=== PATIENT | male | born 1940 | race Caucasian/White ===

== ENCOUNTER 2017-08-21 11:17 | Day surgery (SDC) | payer MEDICARE, OTHER ==
[2017-08-21] MEDS: NS 1,000 ML IV (11:40)
[2017-08-21] MEDS ORDERED: PROPOFOL 200 MG/20 ML VIAL As Ordered ×3 (12:01→12:25)
== END 2017-08-21 13:13 | disposition home or self-care (01) ==
LOC: M OPP 11:17
DX: Z12.11 Encounter for screening for malignant neoplasm of colon (principal); K64.0 First degree hemorrhoids; D12.6 Benign neoplasm of colon, unspecified; D12.0 Benign neoplasm of cecum; Z86.010 Personal history of colon polyps; K57.30 Diverticulosis of large intestine without perforation or abscess without bleeding; K22.8 Other specified diseases of esophagus; K44.9 Diaphragmatic hernia without obstruction or gangrene; R12 Heartburn; I10 Essential (primary) hypertension; E11.9 Type 2 diabetes mellitus without complications; E07.9 Disorder of thyroid, unspecified; E78.5 Hyperlipidemia, unspecified; K21.9 Gastro-esophageal reflux disease without esophagitis; G45.3 Amaurosis fugax; Z79.82 Long term (current) use of aspirin; Z79.01 Long term (current) use of anticoagulants; Z79.899 Other long term (current) drug therapy; Z88.8 Allergy status to other drugs, medicaments and biological substances; Z91.041 Radiographic dye allergy status; J30.2 Other seasonal allergic rhinitis; Z95.2 Presence of prosthetic heart valve
CPT/HCPCS: 45380

== ENCOUNTER → 2019-08-23 | Outpatient (REF) | payer MEDICARE, OTHER ==
[~2019-08-23] MED LIST: AMLO10TA5 PO; ASPI81TA85 PO; ESOM1CAP5 PO; GEMF600T5 PO; IPRA6SP; METO50TA7 PO; SYNT25TA PO; WARF-58 PO
== END ==
LOC: M LAB REF 09:25
PROVIDERS: ATTEND Orthopaedic Surgery
DX: C44.319 Basal cell carcinoma of skin of other parts of face (principal)

== ENCOUNTER → 2020-11-28 | Outpatient (CLI) | payer MEDICARE, OTHER ==
[~2020-11-28] MED LIST changes: -AMLO10TA5 PO; +AMLO1TAB25 PO; -ASPI81TA85 PO; +ASPI81TA86 PO
== END ==
LOC: M LABSMTC 10:16
PROVIDERS: ATTEND Anesthesiology
DX: Z01.812 Encounter for preprocedural laboratory examination (principal); Z20.822 Contact with and (suspected) exposure to COVID-19

== ENCOUNTER 2020-12-03 09:16 | Day surgery (SDC) | payer MEDICARE, OTHER ==
[~2020-12-03] VITALS: Ht 160 cm; Wt 88.9 kg
[~2020-12-03 09:16] MED LIST changes: +NS 1,000 ML IV ONE
[2020-12-03] MEDS ORDERED: MONT10TA97 PO (09:42)
[2020-12-03] MEDS ORDERED: FLUT15.820 NARES (09:42)
[2020-12-03] MEDS ORDERED: RANO500T7 PO (09:42)
[2020-12-03] MEDS ORDERED: propofoL 500 MG/50 ML VIAL As Ordered ONE (10:42)
[2020-12-03] MEDS ORDERED: fentaNYL 100 MCG/2 ML INJECTION As Ordered ONE (10:42)
[2020-12-03] MEDS ORDERED: LIDOCAINE 2% 100MG/5ML SDV (FOR ANES.) As Ordered ONE (10:42)
[2020-12-03 12:00] VITALS: BP 156/80
== END 2020-12-03 11:55 | disposition home or self-care (01) ==
LOC: M OPP 09:16
PROVIDERS: ATTEND Internal Medicine Gastroenterology
DX: Z12.11 Encounter for screening for malignant neoplasm of colon (principal); Z86.010 Personal history of colon polyps; D12.6 Benign neoplasm of colon, unspecified; K57.30 Diverticulosis of large intestine without perforation or abscess without bleeding; K22.8 Other specified diseases of esophagus; K44.9 Diaphragmatic hernia without obstruction or gangrene; K31.7 Polyp of stomach and duodenum; K22.70 Barrett's esophagus without dysplasia; K64.0 First degree hemorrhoids; R12 Heartburn; Z79.82 Long term (current) use of aspirin; Z79.01 Long term (current) use of anticoagulants; Z79.899 Other long term (current) drug therapy; Z87.891 Personal history of nicotine dependence; Z85.47 Personal history of malignant neoplasm of testis; Z92.21 Personal history of antineoplastic chemotherapy; Z95.818 Presence of other cardiac implants and grafts
CPT/HCPCS: 43239; 45385; 88305; J3010